=== PATIENT | male | born 1950 | race Caucasian/White ===

== ENCOUNTER 2018-05-03 13:18 | Emergency (ER) | payer MEDICAID, MEDICARE ==
[2018-05-03 13:49] VITALS: BP 159/79
[2018-05-03] MEDS ORDERED: Aspirin 81 MG Tab.Chew PO ONE (14:04)
--- NOTE | 2018-05-03 14:08 | EDM.PDOC ---
ED HPI GENERAL MEDICAL PROBLEM - General Chief Complaint: Neurological Problem Stated Complaint: BLURRED VISION, NUMBNESS ON SIDE OF FACE Time Seen by Provider: 05/03/18 13:55 Source of Information: Reports: Patient, Family, RN Notes Reviewed History Limitations: Reports: No Limitations - History of Present Illness INITIAL COMMENTS - FREE TEXT/NARRATIVE: 68-year-old gentleman presents to the emergency department today with complaint of blurry vision and facial numbness on the left side as well as chest pressure. He states symptoms started about 11:00 initially with blurry vision that progressed to facial numbness on the lips and tongue left side only followed by chest pressure with radiations into the left arm no nausea vomiting no diaphoresis no shortness of breath. Risk factors include hypertension and dyslipidemia no known coronary artery disease does not use tobacco products no family history of coronary artery disease Chest Pain Score (Numeric/FACES): 3 - Related Data Allergies Allergy/AdvReac Type Severity Reaction Status Date / Time No Known Allergies Allergy Verified 05/03/18 13:33 Home Meds: Home Meds NK [No Known Home Meds] 04/08/15 [History] Past Medical History HEENT History: Reports: Hard of Hearing, Impaired Vision Cardiovascular History: Reports: High Cholesterol, Hypertension Neurological History: Reports: Concussion Dermatologic History: Reports: Eczema - Past Surgical History HEENT Surgical History: Reports: Tonsillectomy, Other (See Below) Other HEENT Surgeries/Procedures: cochlear implant Social & Family History - Tobacco Use Smoking Status *Q: Never Smoker - Alcohol Use Days Per Week of Alcohol Use: 7 Number of Drinks Per Day: 2 Total Drinks Per Week: 14 - Recreational Drug Use Recreational Drug Use: No ED ROS GENERAL - Review of Systems Review Of Systems: See Below Constitutional: Denies: Fever, Chills, Diaphoresis HEENT: Reports: Vision Change Respiratory: Reports: No Symptoms Cardiovascular: Reports: Chest Pain GI/Abdominal: Reports: No Symptoms : Reports: No Symptoms Musculoskeletal: Reports: No Symptoms Skin: Reports: No Symptoms Neurological: Reports: Numbness, Tingling ED EXAM, GENERAL - Physical Exam Exam: See Below Free Text/Narrative:: General: Male, not in any distress, alert and oriented x3 HEENT: head is atraumatic normocephalic, eyes pupils equal round reactive to light, sclera clear no conjunctivitis appreciated, extraocular eye movements intact. Ears tympanic membranes clear and sotelo landmarks and light reflex are present bilaterally canals are clear. Nose no septal deviation, nares are clear, no blood present. Mouth mucosa is moist and pink no erythema or exudate noted in soft palate, tongue is midline uvula is midline, dentition is intact. Neck: Supple no thyromegaly no tracheal deviation. Nodes: Cervical nodes subclavicular nodes nontender no palpable lymphadenopathy noted. Lungs: clear to auscultation bilaterally with symmetrical respirations, no adventitious noise appreciated. CV: Regular rate and rhythm S1 and S2 appreciated no murmurs rubs or gallops noted. Abdomen: Soft, nontender, no palpable masses or organomegaly appreciated, no distention no guarding bowel sounds are present, . Neuro: Cranial nerves II through XII grossly intact, power is 5 out 5 in upper and lower extremities, no dysdiadochokinesis no difficulty with rapid alternating movements can do [id number] without difficulty , has adequate gait c no cerebellar dysfunction no focal neurologic deficit Skin: Warm and dry, intact Extremities: No lower extremity edema appreciated, Course - Vital Signs Last Recorded V/S: Last Vital Signs Temp 97.5 F 05/03/18 13:31 Pulse 79 05/03/18 13:31 Resp 18 05/03/18 13:31 BP 159/79 H 05/03/18 13:31 Pulse Ox 94 L 05/03/18 13:31 - Orders/Labs/Meds Orders: Active Orders 24 hr Category Date Time Status Cardiac Monitoring [RC] .As Directed Care 05/03/18 14:04 Active EKG Documentation Completion [RC] ASDIRECTED Care 05/03/18 14:05 Active EKG 12 Lead [EK] Stat Ther 05/03/18 14:05 Ordered Labs: Laboratory Tests 05/03/18 05/03/18 Range/Units 14:17 14:17 WBC 6.6 (4.5-11.0) K/uL RBC 4.91 (4.30-5.90) M/uL Hgb 15.6 H (12.0-15.0) g/dL Hct 44.3 (40.0-54.0) % MCV 90 (80-98) fL MCH 32 H (27-31) pg MCHC 35 (32-36) % Plt Count 294 (150-400) K/uL Neut % (Auto) 78 H (36-66) % Lymph % (Auto) 11 L (24-44) % [place] % (Auto) 10 H (2-6) % Eos % (Auto) 1 L (2-4) % Baso % (Auto) 0 (0-1) % ESR 11 (0-20) mm/hr Sodium 138 L (140-148) mmol/L Potassium 4.1 (3.6-5.2) mmol/L Chloride 103 (100-108) mmol/L Carbon Dioxide 28 (21-32) mmol/L Anion Gap 11.1 (5.0-14.0) mmol/L BUN 13 (7-18) mg/dL Creatinine 1.0 (0.8-1.3) mg/dL Est Cr Clr Drug Dosing 67.02 mL/min Estimated GFR (MDRD) > 60 (>60) Glucose 121 H (74-106) mg/dL Calcium 8.8 (8.5-10.1) mg/dL Total Bilirubin 0.5 (0.2-1.0) mg/dL AST 23 (15-37) U/L ALT 26 (12-78) U/L Alkaline Phosphatase 82 (46-116) U/L CK-MB (CK-2) 1.2 (0-3.6) mg/mL Troponin I < 0.017 (0.000-0.056) ng/mL Total Protein 7.2 (6.4-8.2) g/dL Albumin 3.5 (3.4-5.0) g/dL Globulin 3.7 H (2.3-3.5) g/dL Albumin/Globulin Ratio 1.0 L (1.2-2.2) Meds: Medications Discontinued Medications Generic Name Dose Route Start Last Admin Trade Name Freq PRN Reason Stop Dose Admin Aspirin 324 mg 05/03/18 14:04 05/03/18 14:34 Aspirin PO 05/03/18 14:05 324 mg ONETIME ONE Administration Departure - Departure Time of Disposition: 16:07 Disposition: Home, Self-Care 01 Condition: Good Clinical Impression: Facial numbness Referrals: PCP,None [Primary Care Provider] - Forms: ED Department Discharge Additional Instructions: Please followup with your primary care provider in 3-5 days if not better, please call return to the emergency department with worsening of symptoms. - My Orders Last 24 Hours: My Active Orders 05/03/18 14:04 Cardiac Monitoring [RC] .As Directed 05/03/18 14:05 EKG Documentation Completion [RC] ASDIRECTED EKG 12 Lead [EK] Stat - Assessment/Plan Last 24 Hours: My Active Orders 05/03/18 14:04 Cardiac Monitoring [RC] .As Directed 05/03/18 14:05 EKG Documentation Completion [RC] ASDIRECTED EKG 12 Lead [EK] Stat Plan: Assessment Acuity = acute Site and laterality = intermittent change in vision with numbness and tingling left side of the face with intermittent chest pressure Etiology = unknown etiology Manifestations = all symptoms have resolved Location of injury = Home Lab values = CBC, CMP, troponin, urinalysis unremarkable CT scan of the head no acute process, chest x-ray unremarkable EKG shows no ST elevations or depressions Plan Follow-up with his primary care 3-5 days for reevaluation This note was dictated using [employer] voice recognition software please call with any questions on syntax or grammar.
--- NOTE | 2018-05-03 14:36 | CT ---
Head wo Cont HISTORY: Left sided numbness. COMPARISON: None TECHNIQUE: Noncontrast enhanced axial cuts were obtained of the brain. FINDINGS: There is artifact created due to bilateral hearing aids. There is no cerebral or subdural h emorrhage. There is no mass effect or edema. The ventricles and CSF spaces are appropriate for age. N o space occupying lesions are demonstrated. The orbital structures are unremarkable. The sinuses demo nstrate normal aeration. IMPRESSION: 1. No acute findings.
--- NOTE | 2018-05-03 14:38 | CR ---
Chest 2V FINDINGS: The heart and vascular structures are normal in appearance. No infiltrates or effusions are demonstrated. The skeletal structures are unremarkable. IMPRESSION: Negative exam.
== END 2018-05-03 16:31 | disposition home or self-care (01) ==
LOC: JP.ED 13:18
DX: R20.0 Anesthesia of skin (principal); R20.2 Paresthesia of skin; H53.8 Other visual disturbances; R07.89 Other chest pain; I10 Essential (primary) hypertension
CPT/HCPCS: 36415; 70450; 71046; 80053; 82553; 84484; 85025; 85651; 93005; 99284; A9270

== ENCOUNTER 2018-05-11 14:47 | Emergency (ER) | payer MEDICARE ==
[2018-05-11] MEDS ORDERED: Bupivacaine 0.5% 30 ML SDV INFILT ONE (15:04)
[2018-05-11] MEDS ORDERED: Diphtheria,Pertussis(Acell),Tetanus Vaccine 0.5 ML SDV IM ONE (15:05)
[2018-05-11 15:12] VITALS: BP 157/83
[2018-05-11] MEDS ORDERED: Bacitracin Oint 1 GM U/D Packet TOP ONE (15:31)
--- NOTE | 2018-05-11 15:37 | EDM.PDOC ---
ED HPI GENERAL MEDICAL PROBLEM - General Chief Complaint: Laceration Stated Complaint: SMASHED FINGER ON RT HAND Time Seen by Provider: 05/11/18 15:15 Source of Information: Reports: Patient, Family History Limitations: Reports: No Limitations - History of Present Illness INITIAL COMMENTS - FREE TEXT/NARRATIVE: 68-year-old male that accidentally pinched the pulp of his ring finger between a pontoon and the dock. He has an avulsion laceration of the pulp on the palmar surface. A fair percentage of the pulp past the DIP joint is missing. There is subcutaneous tissue exposed, no deep tissue such as nerves or bone is exposed. There is no bony tenderness. The base of the nail is also avulsed slightly but the majority of the nail is attached to the nailbed. Onset: Today, Sudden Duration: Hour(s): (Within the last hour) Location: Reports: Upper Extremity, Right Severity: Moderate Associated Symptoms: Reports: No Other Symptoms right ring finger Pain Score (Numeric/FACES): 5 - Related Data Allergies Allergy/AdvReac Type Severity Reaction Status Date / Time No Known Allergies Allergy Verified 05/11/18 15:00 Home Meds: Home Meds NK [No Known Home Meds] 04/08/15 [History] Past Medical History HEENT History: Reports: Hard of Hearing, Impaired Vision Cardiovascular History: Reports: High Cholesterol, Hypertension Neurological History: Reports: Concussion Dermatologic History: Reports: Eczema - Past Surgical History HEENT Surgical History: Reports: Tonsillectomy, Other (See Below) Other HEENT Surgeries/Procedures: cochlear implant Social & Family History - Tobacco Use Smoking Status *Q: Never Smoker - Recreational Drug Use Recreational Drug Use: No ED ROS GENERAL - Review of Systems Review Of Systems: See Below Constitutional: Denies: Fever, Chills Respiratory: Denies: Shortness of Breath Neurological: Reports: No Symptoms, Other (Recently seen in the emergency room for some TIA-like symptoms which have resolved.) ED EXAM, SKIN/RASH Exam: See Below Exam Limited By: No Limitations General Appearance: Alert, No Apparent Distress Respiratory/Chest: No Respiratory Distress Extremities: Other (Exam is otherwise limited to the left hand. Patient has a significant avulsion of the pulp of the ring finger of the right hand palmar surface. The base of the nail is able to the matrix but the remainder is still in place over the nail bed. There is no involvement of the DIP joint, no exposed underlying bone. There is no bony tenderness.) Course - Vital Signs Last Recorded V/S: Last Vital Signs Temp 97.7 F 05/11/18 15:02 Pulse 80 05/11/18 15:02 Resp 12 05/11/18 15:02 BP 157/83 H 05/11/18 15:02 Pulse Ox 96 05/11/18 15:02 - Orders/Labs/Meds Orders: Active Orders 24 hr Category Date Time Status Vaccines to be Administered [RC] PER UNIT ROUTINE Care 05/11/18 15:06 Active Meds: Medications Discontinued Medications Generic Name Dose Route Start Last Admin Trade Name Freq PRN Reason Stop Dose Admin Bacitracin 1 dose 05/11/18 15:31 05/11/18 15:36 Bacitracin Oint 1 Gm TOP 05/11/18 15:32 1 dose ONETIME ONE Administration Bupivacaine HCl 30 ml 05/11/18 15:04 05/11/18 15:11 Marcaine 0.5% INFILT 05/11/18 15:05 30 ml ONETIME ONE Administration Diphtheria/Tetanus/Acell Pertussis 0.5 ml 05/11/18 15:05 05/11/18 15:11 Adacel IM 05/11/18 15:06 0.5 ml .ONCE ONE Administration - Re-Assessments/Exams Free Text/Narrative Re-Assessment/Exam: 05/11/18 15:40 0.5% Marcaine digital block was applied to the finger. Under anesthesia it was cleansed thoroughly with saline. The base of the nail was replaced into the proper alignment and anatomical position. Topical bacitracin and a tube gauze was applied, the should be rechecked with surgery on Sunday. Departure - Departure Time of Disposition: 15:53 Disposition: Home, Self-Care 01 Condition: Good Clinical Impression: Laceration of finger of right hand Qualifiers: Encounter type: initial encounter Finger: ring finger Damage to nail status: with damage Foreign body presence: without foreign body Qualified Code(s): S61.314A - Laceration without foreign body of right ring finger with damage to nail, initial encounter - Discharge Information Instructions: Wound Care, Adult Referrals: PCP,None [Primary Care Provider] - Forms: ED Department Discharge Care Plan Goals: Take antibiotic 3 times a day until rechecked by surgery. Keep wound covered and clean while healing. Ibuprofen should help with any pain. - My Orders Last 24 Hours: My Active Orders 05/11/18 15:06 Vaccines to be Administered [RC] PER UNIT ROUTINE - Assessment/Plan Last 24 Hours: My Active Orders 05/11/18 15:06 Vaccines to be Administered [RC] PER UNIT ROUTINE
== END 2018-05-11 15:56 | disposition home or self-care (01) ==
LOC: JP.ED 14:47
DX: S61.314A Laceration without foreign body of right ring finger with damage to nail, initial encounter (principal); Z23 Encounter for immunization; I10 Essential (primary) hypertension; W23.1XXA Caught, crushed, jammed, or pinched between stationary objects, initial encounter
CPT/HCPCS: 11730; 90471; 90715; 99283; J3490

== ENCOUNTER 2020-04-24 17:50 | Emergency (ER) | payer MEDICARE ==
[2020-04-24 18:14] VITALS: BP 168/77; PULSE 69
[2020-04-24] MEDS ORDERED: Lidocaine 1% with EPINEPHrine 1:100,000 50 ML MDV SUBCUT STA (18:24)
[2020-04-24] MEDS ORDERED: Bacitracin Oint 1 GM U/D Packet TOP ONE (18:24)
--- NOTE | 2020-04-24 18:26 | EDM.PDOC ---
ED HPI GENERAL MEDICAL PROBLEM - General Chief Complaint: Laceration Stated Complaint: LEFT LEG INJURY Time Seen by Provider: 04/24/20 18:21 Source of Information: Reports: Patient, Family, RN Notes Reviewed History Limitations: Reports: No Limitations - History of Present Illness INITIAL COMMENTS - FREE TEXT/NARRATIVE: 70-year-old gentleman presents emergency department today with a large laceration to his left lower extremity, [place] hit his leg on a trailer - Related Data Allergies Allergy/AdvReac Type Severity Reaction Status Date / Time No Known Allergies Allergy Verified 04/24/20 18:13 Home Meds: Home Meds NK [No Known Home Meds] 04/08/15 [History] Past Medical History HEENT History: Reports: Hard of Hearing, Impaired Vision Cardiovascular History: Reports: High Cholesterol, Hypertension Neurological History: Reports: Concussion Dermatologic History: Reports: Eczema - Past Surgical History HEENT Surgical History: Reports: Tonsillectomy, Other (See Below) Other HEENT Surgeries/Procedures: cochlear implant Social & Family History - Tobacco Use Smoking Status *Q: Never Smoker ED ROS GENERAL - Review of Systems Review Of Systems: See Below Constitutional: Reports: No Symptoms Skin: Reports: Wound ED EXAM, SKIN/RASH Exam: See Below Exam Limited By: No Limitations General Appearance: Alert, WD/WN, No Apparent Distress Front/Back Body Diagram: 1 - V-type laceration flap approximately 25 cm in length completely through the dermis ED SKIN PROCEDURES - Laceration/Wound Repair Left Lower Anterior Leg Appearance: Subcutaneous, Irregular, Clean Distal NVT: Neuro & Vascular Intact, No Tendon Injury Anesthetic Type: Local Local Anesthesia - Lidocaine (Xylocaine): 1% with EPI Local Anesthetic Volume: Other (10) Skin Prep: Saline Saline Irrigation (cc's): 120 Exploration/Debridement/Repair: Wound Explored, In a Bloodless Field, Explored to Base Closed with: Sutures, Dano Lac/Wound length In cm: 25 Suture Size: 3-0 # of Sutures: 6 (23 dano) Suture Type: Nylon, Interrupted Suture Size: 3-0 # of Sutures: 6 Repaired with: Vicryl Sterile Dressing Applied: Nurse Tetanus Status Addressed: Yes Complications: No (2 years ago) Course - Vital Signs Last Recorded V/S: Last Vital Signs Temp 97.2 F 04/24/20 18:18 Pulse 69 04/24/20 18:18 Resp 16 04/24/20 18:18 BP 168/77 H 04/24/20 18:18 Pulse Ox 98 04/24/20 18:18 - Orders/Labs/Meds Meds: Medications Discontinued Medications Generic Name Dose Route Start Last Admin Trade Name Arjun PRN Reason Stop Dose Admin Bacitracin 3 dose 04/24/20 18:24 04/24/20 18:50 Bacitracin Oint 1 Gm TOP 04/24/20 18:25 3 dose ONETIME ONE Administration Lidocaine/Epinephrine 20 ml 04/24/20 18:24 04/24/20 18:50 Xylocaine 1% With Epinephrine 1:100,000 SUBCUT 04/24/20 18:25 20 ml NOW STA Administration Departure - Departure Time of Disposition: 19:25 Disposition: Home, Self-Care 01 Condition: Good Clinical Impression: Laceration of left lower leg Qualifiers: Encounter type: initial encounter Qualified Code(s): S81.812A - Laceration without foreign body, left lower leg, initial encounter - Discharge Information Instructions: Laceration Care, Adult, [id number] Referrals: PCP,None [Primary Care Provider] - Forms: ED Department Discharge Additional Instructions: Follow-up with primary care or return to emergency department for suture and staple removal, call or return to the emergency department with worsening of symptoms, watch for signs of infection Sepsis Event Note (ED) - Evaluation Sepsis Screening Result: No Definite Risk - Focused Exam Vital Signs: Vital Signs Temp Pulse Resp BP Pulse Ox 04/24/20 18:18 97.2 F 69 16 168/77 H 98 04/24/20 18:10 97.2 F 69 16 168/77 H 98 - Assessment/Plan Plan: Assessment Acuity = acute Site and laterality = 25 cm laceration left lower leg anterior Etiology = secondary to trauma with a boat trailer Manifestations = none Location of injury = Home Lab values = none Plan Follow wound care instruction sheet suture and staple removal in 10 days This note was dictated using [employer] voice recognition software please call with any questions on syntax or grammar.
== END 2020-04-24 19:37 | disposition home or self-care (01) ==
LOC: JP.ED 17:50
DX: S81.812A Laceration without foreign body, left lower leg, initial encounter (principal); I10 Essential (primary) hypertension; V92.09XA Drowning and submersion due to fall off unspecified watercraft, initial encounter
CPT/HCPCS: 12036; 99282-25

== ENCOUNTER 2020-06-11 06:28 | Day surgery (SDC) | payer MEDICARE ==
[2020-06-11] MEDS ORDERED: Sodium Chloride 0.9% 1,000 ML IV SCH (07:00)
[2020-06-11] MEDS ORDERED: fentaNYL 100 MCG/2 ML SDV ONE (07:16)
[2020-06-11] MEDS ORDERED: Midazolam 1 MG/ML 2 ML SDV ONE (07:16)
[2020-06-11] MEDS ORDERED: Propofol 200 MG/20 ML SDV ONE (07:16)
[2020-06-11 09:09] VITALS: BP 155/79; PULSE 57
--- NOTE | 2020-06-11 09:48 | OR ---
DATE OF PROCEDURE: 06/11/2020 SURGEON: Rich Sommer MD PROCEDURE: 1. Esophagogastroduodenoscopy. 2. Colonoscopy. FINDINGS: 1. Normal EGD. 2. Sigmoid colon polyp, approximately 8 mm, completely removed using hot snare wire device. COMPLICATIONS: None. PROTOTYPE SPECIAL BUILD: None. ANESTHESTIC: MAC. PREOPERATIVE DIAGNOSIS: Positive fecal immunochemical test. POSTOPERATIVE DIAGNOSIS: Positive fecal immunochemical test. RISKS: Risks, benefits, alternatives, and limitations including, but not limited to, infection, bleeding, perforation, false positives, and false negatives were explained to the patient, and wished to proceed. DESCRIPTION OF PROCEDURE: The patient was placed in left lateral decubitus position. The EGD scope was introduced and advanced atraumatically to the second part of the duodenum. No evidence of duodenitis or ulceration within the stomach itself. No evidence of gastritis or ulceration. No abnormalities on retroflexion. The GE junction was normal. The esophagus was normal. Digital rectal exam was performed next. No abnormalities. Scope was introduced and advanced atraumatically to ileocecal valve. Photo was taken. Scope was brought back through the ascending, transverse, descending colon, and retroflexed. No evidence of old or new blood. No masses. In the sigmoid colon, the aforementioned polyp was identified and completely removed. No evidence of bleeding was noted. No diverticulosis. No colitis. The prep was moderately acceptable. Approximately 95% of the luminal surface could be seen. Greater than 8 minutes were spent removing the scope. No abnormalities on retroflexion. The patient tolerated the procedure well. Rich Sommer MD /[id number]
== END 2020-06-11 09:45 | disposition home or self-care (01) ==
LOC: JP.SDS 06:28
PROVIDERS: ATTEND Surgery
DX: D12.5 Benign neoplasm of sigmoid colon (principal); D64.9 Anemia, unspecified; R53.83 Other fatigue; I10 Essential (primary) hypertension; E78.5 Hyperlipidemia, unspecified; Z87.891 Personal history of nicotine dependence
CPT/HCPCS: 43235; 45385; J2250; J2704; J3010; J7030; 88305